=== PATIENT | female | born 1970 | race Caucasian/White ===

== ENCOUNTER → 2016-12-20 | Outpatient (CLI) | payer OTHER ==
[~2016-12-20] MED LIST: MULT-506 PO
== END | disposition home or self-care (01) ==
LOC: C.PAPS 13:59
PROVIDERS: ATTEND Obstetrics & Gynecology
DX: Z12.4 Encounter for screening for malignant neoplasm of cervix (principal)

== ENCOUNTER → 2017-04-20 | Outpatient (CLI) | payer OTHER ==
--- NOTE | 2017-04-20 15:32 | MAMMOGRAPHY REPORT ---
BILATERAL DIGITAL SCREENING MAMMOGRAM TOMOSYNTHESIS WITH CAD: 04/20/2017 CLINICAL HISTORY: Routine screening. Patient has no complaints. TECHNIQUE: Breast tomosynthesis in addition to standard 2D mammography was performed. Current study was also evaluated with a Computer Aided Detection (CAD) system. COMPARISON: Comparison is made to exams dated: 04/07/2016 mammogram, 04/05/2015 mammogram, 03/30/2014 m ammogram, 02/28/2013 mammogram, 02/23/2012 mammogram, and 02/21/2011 mammogram - [facility]. BREAST COMPOSITION: The tissue of both breasts is extremely dense, which lowers the sensitivity of m ammography. FINDINGS: No suspicious masses, calcifications, or areas of architectural distortion are noted in ei ther breast. There has been no significant interval change compared to prior exams. IMPRESSION: ACR BI-RADS CATEGORY 1: NEGATIVE There is no mammographic evidence of malignancy. A 1 year screening mammogram is recommended. The pa tient will receive written notification of the results. Approximately 10% of breast cancers are not detected with mammography. A negative mammographic report should not delay biopsy if a clinically suggestive mass is present. Sarah Beth Sarabia M.D. ah/:04/20/2017 14:22:07 Power Plant Engineer: Raisa MOLINA(R)(M), [facility] letter sent: Normal 1/2 BI-RADS Code: ACR BI-RADS Category 1: Negative
== END | disposition home or self-care (01) ==
LOC: C.MAMM 09:25
PROVIDERS: ATTEND Obstetrics & Gynecology
DX: Z12.31 Encounter for screening mammogram for malignant neoplasm of breast (principal)

== ENCOUNTER → 2018-01-03 | Outpatient (CLI) | payer OTHER | END | disposition home or self-care (01) | LOC: C.PAPS 07:46 | PROVIDERS: ATTEND Obstetrics & Gynecology | DX: Z01.419 Encounter for gynecological examination (general) (routine) without abnormal findings (principal) ==

== ENCOUNTER 2018-01-09 16:14 | Emergency (ER) | payer OTHER ==
[~2018-01-09] VITALS: Ht 161.9 cm; Wt 62.5 kg
[2018-01-09 16:18] VITALS: TEMP 37.2; Ht 161.9 cm; Wt 62.5 kg
[2018-01-09] MEDS ORDERED: MECLIZINE HCL 25 MG TAB PO STA (16:36)
[2018-01-09] MEDS ORDERED: SODIUM CHLORIDE 0.9% 1000ML 1,000 ML IV STA (16:36)
--- NOTE | 2018-01-09 16:48 | EMERGENCY ROOM VISIT NOTE ---
History First contact with patient: 16:21 Chief Complaint: HEADACHE Stated Complaint: DIZZY,HEADACHES,NAUSEA History of Present Illness The patient is a 47 year old female who presents to the Emergency Room via private vehicle accompanied by with complaints of "dizzy, headaches, nausea". The patient states that yesterday between 3 and 4 PM she developed a sudden onset of an occipital headache. She states that then she had minimal dizziness and went to bed. She woke up and the room was spinning. She notes that she had to lay on the ground because of the severe dizziness. She only had a mild headache at that point. She rates the headache as a 4/10 but the dizziness persists. At times it will feel like she is going to pass out other times if she moves room feels as though it is going to spin. Earlier today she notes that she felt better when she was walking with her head tilted to the side it seemed to disrupt some of the room spinning sensation. She denies any history of headaches like this or diagnosis of vertigo. She denies any chest pain or shortness of breath. She states she felt chills today and intermittently felt warm. She denies any dysuria. Review of Systems A complete 10-point Review of Systems was discussed with the patient, with pertinent positives and negatives listed in the History of Present Illness. All remaining Review of Systems questions can be considered negative unless otherwise specified. Past Medical/Surgical History No pertinent. Family History No pertinent. Social History Smoking Status: Never Smoker Patient lives locally with family. Current/Historical Medications Scheduled Meclizine Hcl (Meclizine Hcl), 1 TAB PO TID Multivitamin (Multivitamin), 1 TAB PO DAILY Physical Exam Vital Signs Date Time Temp Pulse Resp B/P (MAP) Pulse Ox O2 Delivery O2 Flow Rate FiO2 01/09/18 20:45 74 16 109/57 97 01/09/18 19:29 80 16 111/62 97 Room Air 01/09/18 17:21 81 18 111/72 97 96 127/72 90 130/70 01/09/18 16:18 37.2 96 20 121/80 98 Room Air Physical Exam VITAL SIGNS - Vital signs and nursing notes were reviewed. Stable. Afebrile. GENERAL -47-year-old female appearing her stated age who is in no acute distress. Communicates well with provider and answers questions appropriately. SKIN - Without rashes. No meningeal or petechial rash. HEAD - NC/AT. EYES - PERRL with EOMI bilaterally. Sclera anicteric. EARS - No deformities of external structures noted on gross examinatio External auditory canals without discharge or otorrhea. Tympanic membranes pearly serrano without retraction or bulging. No fluid or purulent material visualized behind the TM. Handle of malleus, umbo, cone of light, pars tensa/flaccid all easily visualized. NOSE - Midline and without cyanosis. No epistaxis or purulent drainage noted. Septum midline without deviation or septal hematoma noted. MOUTH/OROPHARYNX - Without perioral cyanosis. Buccal mucosa pink and moist and without leukoplakia. Tongue midline with equal elevation of palate bilaterally. No tonsillar hypertrophy, erythema, or exudates noted. Fair dentition noted. NECK - Neck with FROM. Supple to palpation. No lymphadenopathy noted. No nuchal rigidity. LUNGS - Chest wall symmetric without accessory muscle use, intercostals retractions, or central cyanosis. Normal vesicular breath sounds CTA B/L. No wheezes, rales, or rhonchi appreciated. CARDIAC - RRR with S1/S2. No murmur, rubs, or gallops appreciated. EXTREMITIES - No clubbing or peripheral cyanosis. No pretibial edema present. +5 /5 strength noted in UE/LE bilaterally. NEUROLOGIC - Cranial nerves II through XII grossly intact. Sensory intact to light touch throughout. Negative finger to nose. Negative Romberg. Patient does have slight balance abnormality upon standing. Patellar reflexes +2/4. PSYCH - A&Ox3 and cooperates fully with examiner. Pt is very pleasant and interacts well with examiner. Medical Decision & Procedures ER Provider Diagnostic Interpretation: HEAD WITHOUT CONTRAST (CT) CLINICAL HISTORY: 47 years-old Female presenting with Sudden onset headache, now dizziness. TECHNIQUE: Multidetector CT imaging of the head was performed without the use of intravenous contrast. IV contrast: None. A dose lowering technique was used consistent with the principles of ALARA (as low as reasonably achievable). COMPARISON: None. CT DOSE (mGy.cm): The estimated cumulative dose is 537.48 mGy.cm. FINDINGS: Naturopath topogram: Unremarkable. Ventricles and sulci normal in size. Prominent perivascular spaces in the basal ganglia. Brain parenchyma normal in appearance with preserved serrano-white differentiation. No mass effect or midline shift. No hemorrhage or acute territorial infarct. No extra-axial fluid collection. Paranasal sinuses and mastoid air cells clear. Calvarium intact. IMPRESSION: 1. No acute intracranial abnormality. Electronically signed by: Efraín Workman M.D. 01/09/2018 5:08 PM Dictated Date/Time: 01/09/2018 5:06 PM MRI OF THE BRAIN WITHOUT IV CONTRAST CLINICAL HISTORY: Headache. COMPARISON STUDY: CT of the brain dated 01/09/2018. TECHNIQUE: MRI of the brain was performed utilizing various T1 and T2-weighted sequences in the axial, sagittal, and coronal planes. IV contrast was not administered for this examination. FINDINGS: Brain parenchyma: The brain parenchyma is normal in appearance. A small left-sided choroid fissure cyst is incidentally noted. There is no hemorrhage or mass effect. There is no restricted diffusion to suggest acute ischemia. Serrano-white matter differentiation is preserved. No extra-axial fluid collection is seen. The cerebellar tonsils are normal in configuration. Ventricles, sulci, and cisterns: Normal in configuration. Pituitary and sella: Unremarkable. Intracranial vasculature: Normal flow voids are maintained at the skull base. Orbits: The bony orbits are grossly intact. Orbital contents are normal in appearance. Sinuses and mastoids: Mild mucosal thickening is seen in the left maxillary antrum. The remaining paranasal sinuses and the mastoid air cells are clear. Calvarium: Unremarkable. Cervical cord: Partially visualized cervical spinal cord is normal in morphology and signal intensity. IMPRESSION: No acute intracranial abnormality. Electronically signed by: Trell Purdy M.D. 01/09/2018 7:20 PM Dictated Date/Time: 01/09/2018 7:16 PM [~ rep ct add3]] MR ANGIOGRAM OF THE BRAIN CLINICAL HISTORY: Headache. COMPARISON STUDY: CT of the brain dated 01/09/2018. TECHNIQUE: 3-D [id number] MR angiography of the intracranial circulation is performed. 3-D tumble views are created and assessed. IV contrast was not administered for this examination. FINDINGS: The internal carotid arteries are widely patent bilaterally, as are the anterior and middle cerebral arteries. The vertebrobasilar system and posterior cerebral arteries are widely patent. The right vertebral artery is dominant. There is no aneurysm, high-grade stenosis, or focal vessel cutoff seen throughout the intracranial circulation. The brain parenchyma is normal as visualized. IMPRESSION: Unremarkable MR angiogram of the brain. Electronically signed by: Trell Purdy M.D. 01/09/2018 7:07 PM Dictated Date/Time: 01/09/2018 7:06 PM Laboratory Results 01/09/18 16:47 Red Blood Count 4.74, Mean Corpuscular Volume 88.4, Mean Corpuscular Hemoglobin 31.0, Mean Corpuscular Hemoglobin Concent 35.1, Mean Platelet Volume 9.0, Neutrophils (%) (Auto) 88.7, Lymphocytes (%) (Auto) 6.9, Monocytes (%) (Auto) 3.6, Eosinophils (%) (Auto) 0.1, Basophils (%) (Auto) 0.3, Neutrophils # (Auto) 15.21, Lymphocytes # (Auto) 1.18, Monocytes # (Auto) 0.61, Eosinophils # (Auto) 0.01, Basophils # (Auto) 0.05 01/09/18 16:48 Test 01/09/18 16:36 01/09/18 16:45 01/09/18 16:47 01/09/18 16:48 Urine Test NEG (NEG) Urine Color YELLOW Urine Appearance CLEAR (CLEAR) Urine pH 7.0 (4.5-7.5) Urine Specific Lynn 1.004 (1.000-1.030) Urine Protein NEG (NEG) Urine Glucose (UA) NEG (NEG) Urine Ketones NEG (NEG) Urine Occult Blood NEG (NEG) Urine Nitrite NEG (NEG) Urine Bilirubin NEG (NEG) Urine Urobilinogen NEG (NEG) Urine Leukocyte Esterase NEG (NEG) White Blood Count 17.13 K/uL (4.8-10.8) Red Blood Count 4.74 M/uL (4.2-5.4) Hemoglobin 14.7 g/dL (12.0-16.0) Hematocrit 41.9 % (37-47) Mean Corpuscular Volume 88.4 fL (80-100) Mean Corpuscular Hemoglobin 31.0 pg (25-34) Mean Corpuscular Hemoglobin Concent 35.1 g/dl (32-36) Platelet Count 392 K/uL (130-400) Mean Platelet Volume 9.0 fL (7.4-10.4) Neutrophils (%) (Auto) 88.7 % Lymphocytes (%) (Auto) 6.9 % Monocytes (%) (Auto) 3.6 % Eosinophils (%) (Auto) 0.1 % Basophils (%) (Auto) 0.3 % Neutrophils # (Auto) 15.21 K/uL (1.4-6.5) Lymphocytes # (Auto) 1.18 K/uL (1.2-3.4) Monocytes # (Auto) 0.61 K/uL (0.11-0.59) Eosinophils # (Auto) 0.01 K/uL (0-0.5) Basophils # (Auto) 0.05 K/uL (0-0.2) RDW Standard Deviation 42.1 fL (36.4-46.3) RDW Coefficient of Variation 12.9 % (11.5-14.5) Immature Granulocyte % (Auto) 0.4 % Immature Granulocyte # (Auto) 0.07 K/uL (0.00-0.02) Erythrocyte Sedimentation Rate 14 mm/hr (0-21) C-Reactive Protein < 0.29 mg/dl (0-0.29) Prothrombin Time 10.3 SECONDS (9.0-12.0) Prothromb Time International Ratio 1.0 (0.9-1.1) Activated Partial Thromboplast Time 25.8 SECONDS (21.0-31.0) Partial Thromboplastin Ratio 1.0 Anion Gap 4.0 mmol/L (3-11) Est Creatinine Clear Calc Drug Dose 77.0 ml/min Estimated GFR () 105.7 Estimated GFR (Non- 91.2 BUN/Creatinine Ratio 17.8 (10-20) Calcium Level 9.3 mg/dl (8.5-10.1) Magnesium Level 2.1 mg/dl (1.8-2.4) Total Bilirubin 0.6 mg/dl (0.2-1) Aspartate Amino Transf (AST/SGOT) 17 U/L (15-37) Alanine Aminotransferase (ALT/SGPT) 27 U/L (12-78) Alkaline Phosphatase 44 U/L (45-117) Troponin I < 0.015 ng/ml (0-0.045) Total Protein 8.4 gm/dl (6.4-8.2) Albumin 4.1 gm/dl (3.4-5.0) Globulin 4.3 gm/dl (2.5-4.0) Albumin/Globulin Ratio 0.9 (0.9-2) Thyroid Stimulating Hormone (TSH) 0.766 uIu/ml (0.300-4.500) Lyme Disease IgG Antibody NEG (NEG) Lyme Disease IgM Antibody NEG (NEG) Medications Administered Medications (Trade) Dose Ordered Sig/Kimberlee Route Start Time Stop Time Status Last Admin Dose Admin Sodium Chloride 1,000 ml @ 999 mls/hr Q1H1M STAT IV 01/09/18 16:36 01/09/18 17:36 DC 01/09/18 17:20 999 MLS/HR Meclizine HCl (Antivert Tab) 25 mg NOW STAT PO 01/09/18 16:36 01/09/18 16:38 DC 01/09/18 17:20 25 MG Acetaminophen (Tylenol Tab) 500 mg NOW STAT PO 01/09/18 17:56 01/09/18 18:01 DC 01/09/18 19:30 500 MG Medical Decision Patient was seen and evaluated as above in room B6. Review was performed of nursing notes and vital signs. After obtaining a thorough history and physical examination the above work up was performed. She presents to us today with dizziness, headache and nausea. She is nontoxic on exam but does appear to be chilled. Given his sudden onset, and her presentation here today I did elect to obtain a CT scan of the patient's head as well as blood work. CT scan was negative. Patient's labs reveal a leukocytosis of 17.13. No anemia. ESR normal. Coags normal. No evidence of kidney or liver failure. TSH normal. C- reactive protein and troponin negative. EKG per my interpretation reveals normal sinus rhythm at a rate of 69 bpm without ectopy or ischemic change. She is not orthostatic. Her urine is negative. UPT negative. Lyme testing negative. Through shared decision-making, did elect to obtain an MRI of the patient's brain and MRA. This was obtained after discussing the case with the attending physician. These are essentially negative for any acute process. Then did have an extensive discussion with the patient and her regarding whether or not to perform a lumbar puncture. Through utilization of shared decision-making, and after thoroughly discussing benefit versus risk the patient respectively declined. I did discuss with her repercussions if meningitis or subarachnoid hemorrhage is present. While here she was given Tylenol, and fluids. She was also given meclizine. Minimal improvement with the meclizine. There is no evidence of CVA on exam or with the workup today. With her declining lumbar puncture, it was felt she is stable for outpatient management. They were thoroughly educated upon worrisome symptoms which to return. She was thoroughly educated upon the reason lumbar puncture was recommended for the meningitis rule out as well as the subarachnoid hemorrhage rule out. The patient was educated upon management, had questions answered prior to discharge, and was discharged home in good condition. Patient was thoroughly educated upon today's findings. Case was discussed with the attending physician. In the evaluation and treatment of this patient, the following differential diagnoses were considered: Concussion, Contrecoup Injury, Brain Tumor, Depression, Encephalitis, Hypothyroidism, Meningitis, CVA, TIA, Migraine, Cluster Headache, Intracranial Abnormality, Intracranial Hemorrhage, Subdural Hematoma, Subarachnoid Hemorrhage, Hydrocephalus. Impression Primary Impression: Headache Departure Information Dispostion Home / Self-Care Condition GOOD Prescriptions Meclizine Hcl (MECLIZINE HCL) 25 Mg Tab 1 TAB PO TID for Dizziness or Vertigo for 10 Days, #30 TAB Prov: Chris Long PA-C 01/09/18 Referrals Sarah Pinto M.D. (PCP) Patient Instructions My [facility] Additional Instructions You have been treated in the Emergency Department for a Headache. Meclizine 1 tablet up to 3 times per day as needed for dizziness/vertigo. For pain control, you can use the following [id number] medicines (if >12 yo): - Regular strength (325mg/tab) Tylenol (acetaminophen) 2 tabs every 4-6 hours as needed. Do not exceed 12 tablets in a 24 hour period. Avoid taking more than 3 grams (3000 mg) of Tylenol per day. This includes any other sources of acetaminophen you may take on a regular basis. - Regular strength (200 mg/tab) Advil (ibuprofen) 1-2 tabs every 4-6 hours as needed. Do not exceed a dose of 3200 mg per day. You should relax in a quiet, dark place for the rest of the day. Avoid any possible triggers including: cigarette smoke, caffeine, nicotine, chocolate, wine, beer, loud noises or music, or bright lights. You should schedule a follow-up appointment in 2-3 days with your Primary Care Provider or established Neurologist for further evaluation and treatment of your Headache. Return to the Emergency Department if your current symptoms worsen despite treatment course outlined above, or if you develop any of the following symptoms : intractable pain despite aforementioned treatment course, visual disturbances , loss of vision, unilateral weakness or facial drooping, slurring of speech, loss of coordination, or loss of consciousness.
[2018-01-09 17:04] LABS: BASO % 0.3 %; BASO ABS # 0.05 K/uL (0-0.2); EOS % 0.1 %; EOS ABS # 0.01 K/uL (0-0.5); HEMATOCRIT 41.9 % (37-47); HEMOGLOBIN 14.7 g/dL (12.0-16.0); IG# 0.07 K/uL (0.00-0.02); LYMPH % 6.9 %; LYMPH ABS # 1.18 K/uL (1.2-3.4); MEAN CELL VOLUME 88.4 fL (80-100); MEAN CORPUSCULAR HGB CONC 35.1 g/dl (32-36); MONO % 3.6 %; MONO ABS # 0.61 K/uL (0.11-0.59); NEUT % 88.7 %; NEUT ABS # 15.21 K/uL (1.4-6.5); PLATELET COUNT 392 K/uL (130-400); RED CELL DISTRIBUTION WIDTH CV 12.9 % (11.5-14.5); RED CELL DISTRIBUTION WIDTH SD 42.1 fL (36.4-46.3); WHITE BLOOD COUNT 17.13 K/uL (4.8-10.8)
--- NOTE | 2018-01-09 17:10 | DIAGNOSTIC IMAGING REPORT ---
HEAD WITHOUT CONTRAST (CT) CLINICAL HISTORY: 47 years-old Female presenting with Sudden onset headache, now dizziness. TECHNIQUE: Multidetector CT imaging of the head was performed without the use of intravenous contrast. IV contrast: None. A dose lowering technique was used consistent with the principles of ALARA (as low as reasonably achievable). COMPARISON: None. CT DOSE (mGy.cm): The estimated cumulative dose is 537.48 mGy.cm. FINDINGS: Health Program Analyst topogram: Unremarkable. Ventricles and sulci normal in size. Prominent perivascular spaces in the basal ganglia. Brain parenchyma normal in appearance with preserved joyce-white differentiation. No mass effect or midline shift. No hemorrhage or acute territorial infarct. No extra-axial fluid collection. Paranasal sinuses and mastoid air cells clear. Calvarium intact. IMPRESSION: 1. No acute intracranial abnormality. Electronically signed by: Efraín Workman M.D. 01/09/2018 5:08 PM Dictated Date/Time: 01/09/2018 5:06 PM
[2018-01-09 17:11] LABS: PTT PATIENT 25.8 SECONDS (21.0-31.0)
[2018-01-09 17:34] LABS: ALBUMIN 4.1 gm/dl (3.4-5.0); ALKALINE PHOSPHATASE 44 U/L (45-117); ALT/SGPT 27 U/L (12-78); AST/SGOT 17 U/L (15-37); BLOOD UREA NITROGEN 14 mg/dl (7-18); CALCIUM 9.3 mg/dl (8.5-10.1); CARBON DIOXIDE 27 mmol/L (21-32); CREATININE 0.78 mg/dl (0.60-1.20); GLUCOSE 102 mg/dl (70-99); POTASSIUM 3.8 mmol/L (3.5-5.1); SODIUM 136 mmol/L (136-145); TOTAL PROTEIN 8.4 gm/dl (6.4-8.2)
[2018-01-09] MEDS ORDERED: ACETAMINOPHEN 500 MG TAB PO STA (17:56)
--- NOTE | 2018-01-09 19:09 | DIAGNOSTIC IMAGING REPORT ---
MR ANGIOGRAM OF THE BRAIN CLINICAL HISTORY: Headache. COMPARISON STUDY: CT of the brain dated 01/09/2018. TECHNIQUE: 3-D [id number] MR angiography of the intracranial circulation is performed. 3-D tumble views are created and assessed. IV contrast was not administered for this examination. FINDINGS: The internal carotid arteries are widely patent bilaterally, as are the anterior and middle cerebral arteries. The vertebrobasilar system and posterior cerebral arteries are widely patent. The right vertebral artery is dominant. There is no aneurysm, high-grade stenosis, or focal vessel cutoff seen throughout the intracranial circulation. The brain parenchyma is normal as visualized. IMPRESSION: Unremarkable MR angiogram of the brain. Electronically signed by: Trell Purdy M.D. 01/09/2018 7:07 PM Dictated Date/Time: 01/09/2018 7:06 PM
--- NOTE | 2018-01-09 19:21 | DIAGNOSTIC IMAGING REPORT ---
MRI OF THE BRAIN WITHOUT IV CONTRAST CLINICAL HISTORY: Headache. COMPARISON STUDY: CT of the brain dated 01/09/2018. TECHNIQUE: MRI of the brain was performed utilizing various T1 and T2-weighted sequences in the axial, sagittal, and coronal planes. IV contrast was not administered for this examination. FINDINGS: Brain parenchyma: The brain parenchyma is normal in appearance. A small left-sided choroid fissure cyst is incidentally noted. There is no hemorrhage or mass effect. There is no restricted diffusion to suggest acute ischemia. Serrano-white matter differentiation is preserved. No extra-axial fluid collection is seen. The cerebellar tonsils are normal in configuration. Ventricles, sulci, and cisterns: Normal in configuration. Pituitary and sella: Unremarkable. Intracranial vasculature: Normal flow voids are maintained at the skull base. Orbits: The bony orbits are grossly intact. Orbital contents are normal in appearance. Sinuses and mastoids: Mild mucosal thickening is seen in the left maxillary antrum. The remaining paranasal sinuses and the mastoid air cells are clear. Calvarium: Unremarkable. Cervical cord: Partially visualized cervical spinal cord is normal in morphology and signal intensity. IMPRESSION: No acute intracranial abnormality. Electronically signed by: Trell Purdy M.D. 01/09/2018 7:20 PM Dictated Date/Time: 01/09/2018 7:16 PM
[2018-01-09] MEDS ORDERED: MECL1TAB42 PO (20:01)
[2018-01-09 20:45] VITALS: BP 109/57; PULSE 74; O2SAT 97
== END 2018-01-09 20:45 | disposition home or self-care (01) ==
LOC: C.EDB 16:15
DX: R51 Headache (principal); R42 Dizziness and giddiness; R11.0 Nausea; Z79.899 Other long term (current) drug therapy